=== PATIENT | male | born 1980 | race Two or more races ===

== ENCOUNTER 2018-02-07 04:51 | Emergency (ER) | payer OTHER ==
[~2018-02-07] VITALS: Ht 175.3 cm; Wt 108.9 kg
[~2018-02-07 04:51] MED LIST: LISI10TA5
--- NOTE | 2018-02-07 05:00 | NUR ---
Pt walked in with pain on his right hand x 2 days, it appears red and swollen, surrounding skin is intact. Pt denies any trauma or insect bite. Pt is A, O4, moves all extremities without difficulty, on RA. Awaiting MD evaluation.
--- NOTE | 2018-02-07 05:21 | NUR ---
Xray of right hand in progress
[2018-02-07 05:56] VITALS: BP 153/97
--- NOTE | 2018-02-07 05:58 | NUR ---
Patient discharged to home in stable condition. Written and verbal after care instructions and prescription given. Patient verbalizes understanding of instruction. Pt. ambulatory with a steady gait
== END 2018-02-07 06:00 | disposition home or self-care (01) ==
LOC: ER 04:53
DX: L03.113 Cellulitis of right upper limb (principal); Z79.899 Other long term (current) drug therapy
CPT/HCPCS: 73130-TC; A4606; Z7610